=== PATIENT | male | born 1990 | race Native Hawaiian/Other Pacific Islander ===

== ENCOUNTER 2016-09-03 18:18 | Outpatient (CLI) | payer OTHER | END 2016-09-03 18:25 | disposition short-term general hospital (02) | LOC: AMB 18:18 | DX: M21.861 Other specified acquired deformities of right lower leg (principal); M54.2 Cervicalgia; M54.89 Other dorsalgia; V59.59XA Passenger in pick-up truck or van injured in collision with other motor vehicles in traffic accident, initial encounter; Y92.414 Local residential or business street as the place of occurrence of the external cause | CPT/HCPCS: A0425; A0429 ==

== ENCOUNTER 2016-09-03 18:27 | Emergency (ER) | payer OTHER ==
[~2016-09-03] VITALS: Ht 182.9 cm; Wt 79.4 kg
[2016-09-03 19:02] LABS: PLATELET COUNT 258 K/uL (142-355)
[2016-09-03 19:04] LABS: POTASSIUM 3.4 mmol/L (3.6-5.2); SODIUM 135 mmol/L (136-145)
[2016-09-03 21:05] VITALS: BP 121/77; TEMP 98.6
== END 2016-09-03 21:05 | disposition home or self-care (01) ==
LOC: ED 18:27
DX: S13.9XXA Sprain of joints and ligaments of unspecified parts of neck, initial encounter (principal); S00.93XA Contusion of unspecified part of head, initial encounter; S20.219A Contusion of unspecified front wall of thorax, initial encounter; S30.1XXA Contusion of abdominal wall, initial encounter; S80.11XA Contusion of right lower leg, initial encounter; S30.0XXA Contusion of lower back and pelvis, initial encounter; S20.222A Contusion of left back wall of thorax, initial encounter; S20.221A Contusion of right back wall of thorax, initial encounter; S40.011A Contusion of right shoulder, initial encounter; K80.20 Calculus of gallbladder without cholecystitis without obstruction; V43.62XA Car passenger injured in collision with other type car in traffic accident, initial encounter
CPT/HCPCS: 36415; 80053; 85027; 96365; 96375; 96376; 99284; J2060; J2270; Q9963